=== PATIENT | male | born 1995 | race Caucasian/White ===

== ENCOUNTER 2018-04-24 20:36 | Emergency (ER) | payer OTHER ==
[~2018-04-24] VITALS: Ht 188 cm; Wt 86.6 kg
[2018-04-24 20:51] VITALS: Ht 188 cm; Wt 86.6 kg
[2018-04-25 00:16] VITALS: BP 129/78
== END 2018-04-25 00:16 | disposition home or self-care (01) ==
LOC: ED 20:36
DX: S61.215A Laceration without foreign body of left ring finger without damage to nail, initial encounter (principal); W26.8XXA Contact with other sharp object(s), not elsewhere classified, initial encounter; Y93.89 Activity, other specified; Y92.89 Other specified places as the place of occurrence of the external cause; Y99.8 Other external cause status
CPT/HCPCS: 90715